=== PATIENT | female | born 1970 | race Caucasian/White ===

== ENCOUNTER 2016-09-27 05:18 | Emergency (ER) | payer SELFPAY ==
[~2016-09-27 05:18] MED LIST: CALCIUM500 MG; FLEXERIL10 MG PO; GINSENG; MOTRIN800 MG PO; MULTIVITAMIN1 CAP; [UNRECOGNIZED DRUG - OTHER]
[2016-09-27] MEDS ORDERED: WOMEN'S MULTIVITAMIN PO (06:00)
[2016-09-27] MEDS ORDERED: FOLTX TABLET1 EAC1 PO (06:00)
[2016-09-27 06:08] LABS: BASO % 0.4 % (0-2); EOS % 3.3 % (0-7); EOSINOPHIL ABSOLUTE COUNT 0.2 tho/cmm (0.0-0.7); HCT-HEMATOCRIT 41.2 % (34.0-49.0); HGB-HEMOGLOBIN 13.7 gm/dl (12.0-15.5); IMMATURE GRANULOCYTES ABSOLUTE 0.02 tho/cmm (0-0.03); IMMATURE GRANULOCYTES PERCENT 0.4 % (0-0.3); LYMPH % 21.4 % (20-45); LYMPH ABSOLUTE COUNT 1.1 tho/cmm (0.8-4.5); MCHC MEAN CORPUSCULAR HGB CONC 33.3 % (32.0-36.0); MCV (MEAN CELL VOLUME) 87.3 fl (82.0-96.0); MONO % 7.3 % (0-12); MONOCYTE ABSOLUTE COUNT 0.4 tho/cmm (0.0-1.2); NEUTROPHIL ABSOLUTE COUNT 3.3 tho/cmm (1.6-8.0); NEUTROPHIL-AUTOMATED 3.3 tho/cmm (1.6-8.0); NEUTROPHILS % 67.2 % (40-80); PLATELET COUNT 118 tho/cmm (150-450); RED BLOOD COUNT 4.72 mil/cmm (4.00-5.20); RED CELL DISTRIBUTION WIDTH 15.6 % (12.4-16.4); WHITE BLOOD COUNT 4.9 tho/cmm (4.0-10.0)
== END 2016-09-27 09:09 ==
LOC: EDMED 05:18
PROVIDERS: Emergency Medicine
DX: D25.2 Subserosal leiomyoma of uterus (principal); K72.90 Hepatic failure, unspecified without coma; Z79.899 Other long term (current) drug therapy; F17.200 Nicotine dependence, unspecified, uncomplicated
CPT/HCPCS: J1170; J2405; J7030